=== PATIENT | female | born 1970 | race Caucasian/White ===

== ENCOUNTER 2021-02-21 11:34 | Emergency (ER) | payer OTHER ==
[2021-02-21] MEDS ORDERED: CITALOPRAM HBR10 MG (11:48)
[2021-02-21 12:24] VITALS: BP 139/83
== END 2021-02-21 12:18 | disposition home or self-care (01) ==
LOC: ED 11:34
DX: S13.4XXA Sprain of ligaments of cervical spine, initial encounter (principal); Y04.8XXA Assault by other bodily force, initial encounter; Y92.59 Other trade areas as the place of occurrence of the external cause; Y99.0 Civilian activity done for income or pay